=== PATIENT | female | born 1930 | race Caucasian/White ===

== ENCOUNTER 2017-04-21 16:45 | Inpatient (IN) ==
[2017-04-21] MEDS ORDERED: Ondansetron 4 MG/2 ML VIAL IVP PRN (22:37)
[2017-04-21] MEDS ORDERED: *HR* OxyCODONE Immed Rel 5 MG TABLET PO PRN (22:37)
[2017-04-21] MEDS ORDERED: Naloxone 0.4 MG/ML INJ IVP PRN (22:37)
[2017-04-21] MEDS ORDERED: *HR* Morphine 2 MG/ML SYRINGE IVP PRN (22:37)
--- NOTE | 2017-04-21 22:54 | Internal Med History&Physical ---
Date of Encounter: 04/21/17 Time of Encounter: 22:00 Assessment and Plan (1) Hip fracture Current visit: Yes Status: Acute 1. Consult Dr. Bajwa for surgical management and repair. 2. PT/OT consults after surgery. 3. Patient will likely need inpatient rehab after surgery, but I defer to Dr. Bajwa. Further imaging per Dr. Bajwa. Reportedly, he viewed images of xray while at [facility] clinic today. 4. Will order pre-op CXR, EKG, and routine labs. 5. No clinical history to suggest angina. Her history of dyspnea appears to be asthma in nature and responds to albuterol MDI. I recommend pulmonary toilet post-op and incentive spirometry. Qualifiers: Encounter type: initial encounter Fracture type: closed Laterality: right Qualified Code(s): S72.001A - Fracture of unspecified part of neck of right femur, initial encounter for closed fracture (2) Hypertension Current visit: Yes Status: Chronic 1. Continue Home medications as appropriate. 2. Monitor BP and adjust as necessary. Qualifiers: Hypertension type: essential hypertension Qualified Code(s): I10 - Essential (primary) hypertension (3) Asthma Current visit: Yes Status: Chronic 1. Continue albuterol MDI PRN. 2. Incentive spirometry post-op for pneumonia prophylaxis. Qualifiers: Asthma severity: mild Asthma persistence: intermittent Asthma complication type: uncomplicated Qualified Code(s): J45.20 - Mild intermittent asthma, uncomplicated (4) DVT prophylaxis Current visit: Yes Status: Acute 1. Heparin SQ. Internal Medicine - H&P: HPI Chief complaint: hip fracture Admitted From: Hospital to Hospital Transfer Plans for Post Hospital Care: Transfer Inp Rehab Fac History of present illness: Ms. Harrison is a 87 year old female who presents to the hospital in transfer from [facility] ER. She presented there earlier today after sustaining a mechanical fall and injuring her right hip. She reportedly sustained a hip fracture according to the patient, family, and very limited ER records from [place]. I do not see an x-ray report and/or imaging. However, this was reported to me from patient and family. Additionally, Dr. Bajwa reviewed the x-ray in clinic today at [facility]. Patient was transferred here for surgical repair. Patient currently is pain-free. However , she does have significant pain with moving her hip and leg. She denies any syncope or near syncope. She states that this happened when she tripped over a curb on the sidewalk while walking to the mall. She denies any cardiac history. She denies any history of angina or exertional dyspnea. She does have a history of asthma and allergies. Her shortness of breath is related to her asthma and is easily relieved by an inhaler. She is an active individual and actively tends to her garden every day and works outside along her house. She is not limited in activity whatsoever until now with her hip fracture. Other than the very limited ER H&P from [place], I do not see any labs, imaging , or other reports. Past Med Surg Social Fam HX - Past Medical History Attestation: Yes The following information was validated with the patient. Source: patient, obtained from family Medical history: asthma, GERD, hypertension Psychiatric history: no psych history - Past Surgical History Surgical History: hysterectomy, sinus surgery - Social History Smoking Status: Former smoker Smokeless Tobacco Status: No Alcohol use: none Drug use: none Current living situation: Home - Independent Activity Level: Independent ambulation, Very active Recent Out of Country Travel Within the Last 8 Weeks: No - Family History Mother Adopted: [place]: Mae Fernando Age: 80 Family Member Ethnicity: Non- Living Status: Age at : 80 Cause of : MD Hx Family Cardiac Disorders: Yes (MD) Hx Family Respiratory Disorders: No Hx Family Cancer: No Hx Family GI Disorders: No Hx Family Genitourinary Disorders: No Hx Family Endocrine Disorder: Yes (DM) Hx Family Musculoskeletal Disorders: No Hx Family Neuromuscular Disorders: No Hx Family Neurologic Disorders: No Hx Family HEENT Disorders: No Hx Family Autoimmune Disorders: No Hx Family Reproductive Disorders: No Hx Family Psychosocial Disorders: No Hx Family Medical Disorders: No Internal Medicine - H&P: Meds Albuterol Sulfate [Ventolin Hfa] 2 puff IH Q6H PRN 04/21/17 [History] Fexofenadine HCl [Allergy Relief] 180 mg PO DAILY 04/21/17 [History] Hydrochlorothiazide [Microzide] 12.5 mg PO DAILY 04/21/17 [History] Losartan Potassium [Cozaar] 100 mg PO DAILY 04/21/17 [History] Omeprazole [PriLOSEC] 20 mg PO DAILY 04/21/17 [History] Tizanidine HCl 2 mg PO HS PRN 04/21/17 [History] 3 Allergy/AdvReac Type Severity Reaction Status Date / Time Penicillins AdvReac Rash Verified 04/21/17 19:07 - Constitutional Constitutional: no chills, no fever(s), no night sweats - EENT Eyes: no blurry vision, no change in vision Ears: no ear pain, no tinnitus Nose, mouth and throat: post-nasal drip, no nasal congestion, no nasal discharge , no sinus pressure, no sore throat - Cardiovascular Cardiovascular ROS IM: no chest pain, no dyspnea, no dyspnea on exertion, no irregular heart rhythm, no lightheadedness, no palpitations, no syncope - Respiratory Respiratory: wheezing, no cough, no dyspnea, no hemoptysis, no dyspnea on exertion, no chest congestion, no excessive phlegm production, no change in phlegm color - Gastrointestinal Gastrointestinal: no abdominal pain, no diarrhea, no hematemesis, no hematochezia, no melena, no nausea, no vomiting - Genitourinary Genitourinary: no dysuria, no flank pain, no hematuria - Musculoskeletal Musculoskeletal ROS IM: arthralgias (right hip), no back pain - Integumentary Integumentary IM: no rash, no jaundice - Neurological Neurological ROS: no disequilibrium, no dizziness, no focal weakness, no frequent falls, no headache(s) - Psychiatric Psychiatric: no anxiety, no depression - Endocrine Endocrine IM: no polydipsia, no polyuria - Hematologic/Lymphatic Hematologic/Lymphatic: no lymphadenopathy - Allergic/Immunologic Allergic/Immunologic: wheezing, no GI upset with certain foods - Constitutional Vitals: Temp Pulse Resp BP Pulse Ox 98.3 F 92 16 158/90 93 04/21/17 19:45 04/21/17 19:45 04/21/17 19:45 04/21/17 19:45 04/21/17 19:45 General appearance: Present: cooperative, A&O X 3, pleasant, no acute distress - Head Head exam: Present: atraumatic, normal inspection - Expanded Head Exam Head exam expanded: Absent: abrasion, contusion - Eye Eye exam: Present: EOMI, normal appearance, PERRL. Absent: scleral icterus Pupils: Present: normal accommodation - ENT ENT exam: Present: normal exam, normal oropharynx - Neck Neck exam general surgery: Present: full ROM, supple. Absent: tenderness, nuchal rigidity - Expanded Neck Exam Neck exam: Absent: carotid bruit - Respiratory Respiratory exam: Present: CTAB. Absent: chest wall tenderness, rales, respiratory distress, rhonchi, wheezes - Cardiovascular Cardiovascular exam: Present: RRR, +S1, +S2. Absent: diastolic murmur, JVD, systolic murmur - GI/Abdominal GI/Abdominal exam: Present: normal bowel sounds, soft. Absent: hepatomegaly, mass, splenomegaly, tenderness - Extremities Exam Extremities exam: Present: normal capillary refill, tenderness (right hip), warm , radial pulses palpable and symmetrical. Absent: calf tenderness, pedal edema - Back Exam Back exam: Absent: CVA tenderness (L), CVA tenderness (R) - Neurological Exam Neurological exam: Present: alert, CN II-XII intact, oriented X3, no focal deficits - Psychiatric Psychiatric exam: Present: normal affect, normal mood - Skin Skin exam: Present: dry, warm. Absent: rash
[2017-04-21] MEDS: *HR* Heparin 5,000 UNIT/ML VIAL SQ SCH (23:05)
[2017-04-22 04:38] LABS: Basophils % 0.3 %; Eosinophils # 0.2 K/mcL (0.0-0.6); Eosinophils % 2.6 %; Hematocrit 38.8 % (35.3-44.9); Hemoglobin 13.1 g/dL (11.5-15.4); Immature Granulocytes % 0.2 % (0-4); Lymphocytes # 1.1 K/mcL (0.6-4.6); Lymphocytes % 12.9 %; Mean Corpuscular HGB Conc 33.8 g/dL (31.6-35.5); Mean Corpuscular Hemoglobin 27.9 pg (28.0-33.3); Mean Corpuscular Volume 82.7 fL (83.0-100.0); Mean Platelet Volume 10.1 fL (9.4-12.4); Monocytes # 0.6 K/mcL (0.0-1.3); Monocytes % 6.2 %; Neutrophils # 6.9 K/mcL (1.6-8.9); Platelet Count 144 K/mcL (140-400); Red Blood Count 4.69 M/mcL (3.82-4.97); Red Cell Distribution Width 13.9 % (11.5-14.5); Segmented Neutrophils % 77.8 %
[2017-04-22 04:42] LABS: INR 1.1; Prothrombin Time 12.4 Seconds (9.4-12.1)
[2017-04-22 04:44] LABS: Activated Partial Thrombo Time 30.2 Seconds (26.0-36.0)
[2017-04-22 05:01] LABS: Alanine Aminotransferase 20 Units/L (0-55); Albumin 3.3 g/dL (3.5-5.0); Alkaline Phosphatase 67 Units/L (38-126); Aspartate Amino Transferase 19 Units/L (5-34); BUN/Creatinine Ratio 25 (6-26); Bilirubin,Total 1.1 mg/dL (0.2-1.2); Blood Urea Nitrogen 19 mg/dL (7-20); Calcium 9.1 mg/dL (8.6-10.8); Carbon Dioxide 24 mEq/L (19-29); Chloride 107 mEq/L (98-109); Globulin 3.2 g/dL (2.4-3.5); Glucose 116 mg/dL (70-99); Magnesium 1.7 mg/dL (1.6-2.6); Osmolality,Calculated 293 (280-300); Potassium 3.8 mEq/L (3.5-4.5); Sodium 140 mEq/L (136-145); Total Protein 6.5 g/dL (6.0-8.3); eGFR For African Americans > 60 (> 60); eGFR For Non-African Americans > 60 (> 60)
[2017-04-22] MEDS: *HR* Heparin 5,000 UNIT/ML VIAL SQ SCH (05:25)
[2017-04-22] MEDS: Acetaminophen 325 MG TABLET PO PRN ×2 (06:21→12:23)
--- NOTE | 2017-04-22 08:04 | Electrocardiograph Report ---
[address] [place] [address] Test Date: 2017-04-21 Pat Name: Analisa Harrison Department: 114 Room: [facility] Gender: F Senior Managing Director: EVERT : 1930 Requested By: Wily Rivas Order Number: [id number] Reading MD: Sharon Slaughter Measurements Intervals [place] Rate: 96 P: 71 NV: 167 QRS: 67 QRSD: 88 T: 69 QT: 342 QTc: 395 Interpretive Statements SINUS RHYTHM WITH SUPRAVENTRICULAR PREMATURE COMPLEX Electronically Signed On 04-22-2017 8:03:18 EDT by Sharon Slaughter
--- NOTE | 2017-04-22 08:40 | Orthopedic Consult Note ---
Date of Encounter: 04/22/17 Time of Encounter: 08:39 History of Present Illness HPI: Ms. Harrison is a 87 year old female Status post fall yesterday with nondisplaced fracture right hip. Patient seen and [facility] ER. Patient transferred over for definitive treatment. Physical exam Alert and oriented 3 Normocephalic/atraumatic. Right lower extremity Neurovascularly intact Decreased range of motion secondary to pain X-rays reviewed nondisplaced fracture right femoral neck Recommendation for right hip pinning. We reviewed the risks and benefits as well as recovery. All questions were answered. The patient agreed to this treatment plan and appeared to understand the plan is reviewed. Past Med Surg Social Fam HX - Past Medical History Medical history: asthma, GERD, hypertension Psychiatric history: no psych history - Past Surgical History Surgical History: hysterectomy, sinus surgery - Social History Smoking Status: Former smoker Smokeless Tobacco Status: No Alcohol use: none Drug use: none - Family History Mother Adopted: [place]: Mae Fernando Age: 80 Family Member Ethnicity: Non- Living Status: Age at : 80 Cause of : DE Hx Family Cardiac Disorders: Yes (DE) Hx Family Respiratory Disorders: No Hx Family Cancer: No Hx Family GI Disorders: No Hx Family Genitourinary Disorders: No Hx Family Endocrine Disorder: Yes (DM) Hx Family Musculoskeletal Disorders: No Hx Family Neuromuscular Disorders: No Hx Family Neurologic Disorders: No Hx Family HEENT Disorders: No Hx Family Autoimmune Disorders: No Hx Family Reproductive Disorders: No Hx Family Psychosocial Disorders: No Hx Family Medical Disorders: No Medications and Allergies Albuterol Sulfate [Ventolin Hfa] 2 puff IH Q6H PRN 04/21/17 [History] Fexofenadine HCl [Allergy Relief] 180 mg PO DAILY 04/21/17 [History] Hydrochlorothiazide [Microzide] 12.5 mg PO DAILY 04/21/17 [History] Losartan Potassium [Cozaar] 100 mg PO DAILY 04/21/17 [History] Omeprazole [PriLOSEC] 20 mg PO DAILY 04/21/17 [History] Tizanidine HCl 2 mg PO HS PRN 04/21/17 [History] 3 Allergy/AdvReac Type Severity Reaction Status Date / Time Penicillins AdvReac Rash Verified 04/21/17 19:07 All Systems Reviewed: A 10-system review of systems was performed and is negative for pertinent findings except as documented above in the HPI. Physical Exam - Constitutional Vitals: Temp Pulse Resp BP Pulse Ox 98.4 F 96 28 133/80 91 04/22/17 07:40 04/22/17 07:40 04/22/17 07:40 04/22/17 07:40 04/22/17 07:40 Results - Labs Result Diagrams: 04/22/17 03:37 04/22/17 03:37 Labs: Abnormal lab results MCV 82.7 fL (83.0-100.0) L 04/22/17 03:37 MCH 27.9 pg (28.0-33.3) L 04/22/17 03:37 PT 12.4 Seconds (9.4-12.1) H 04/22/17 03:37 Glucose 116 mg/dL (70-99) H 04/22/17 03:37 POC Glucose 110 (58-89) H 04/22/17 06:37 Albumin 3.3 g/dL (3.5-5.0) L 04/22/17 03:37 Albumin/Globulin Ratio 1.0 (1.1-2.2) L 04/22/17 03:37 H & H 04/22/17 Range/Units 03:37 Hgb 13.1 (11.5-15.4) g/dL Hct 38.8 (35.3-44.9) % All other labs normal. Consult Discharge Plan - Plan Referrals: Diallo Miller, FINAL INSPECTOR [Primary Care Provider] -
[2017-04-22] MEDS ORDERED: Loratadine 10 MG TABLET PO SCH (09:00)
--- NOTE | 2017-04-22 14:34 | Anesthesia Evaluation PreOp ---
Date of Encounter: 04/22/17 Time of Encounter: 14:22 - Past History Planned Operation: right hip pinning Cardiac History: Denies any Significant Hx Pulmonary History: Former smoker, Asthma FOUNDRY WORKER GENERAL History: Denies Any Significant HX Other Medical History: GERD Alcohol Use: none Drug use: none Medications and Allergies Albuterol Sulfate [Ventolin Hfa] 2 puff IH Q6H PRN 04/21/17 [History] Fexofenadine HCl [Allergy Relief] 180 mg PO DAILY 04/21/17 [History] Hydrochlorothiazide [Microzide] 12.5 mg PO DAILY 04/21/17 [History] Losartan Potassium [Cozaar] 100 mg PO DAILY 04/21/17 [History] Omeprazole [PriLOSEC] 20 mg PO DAILY 04/21/17 [History] Tizanidine HCl 2 mg PO HS PRN 04/21/17 [History] 3 Allergy/AdvReac Type Severity Reaction Status Date / Time Penicillins AdvReac Rash Verified 04/21/17 19:07 Anesthesia Results - Labs 04/22/17 03:37 04/22/17 03:37 - Imaging EKG: report reviewed (SINUS RHYTHM WITH SUPRAVENTRICULAR PREMATURE COMPLEX) Anesthesia Exam Selected Entries 04/22/17 10:33 Temperature 98.5 F Pulse Rate 103 Respiratory Rate 28 Blood Pressure 148/103 O2 Sat by Pulse Oximetry 91 Weight: 58kg NPO (# of Hours): >>8 - HEENT Pupil (Motor): EOMI Mallampati: II Teeth: Normal Oral Opening: Greater than 3 - FOUNDRY WORKER GENERAL LOC: Oriented FOUNDRY WORKER GENERAL Motor: Normal RUE, Normal LUE, Normal RLE, Normal LLE, Normal Face FOUNDRY WORKER GENERAL Sensory: Normal: RUE, LUE, RLE, LLE, Face - Cardiac Rhythm: Regular Murmur: None - Pulmonary Breath Sounds: bilateral Clear Respiratory Effort: Symmetrical Anesthesia Assess/Plan ASA Score: 3 Modified Fraser Scale for Level of Consciousness: Cooperative, oriented, and tranquil Anesthetic Plan: General Monitoring Plan: Standard Monitors Recovery Plan: PACU (discussed risks of GA, agrees to proceed)
[2017-04-22] MEDS ORDERED: *HR* FentaNYL (PF) 100 MCG/2 ML VIAL ONE (15:04)
[2017-04-22] MEDS ORDERED: *HR* Propofol 200 MG/20 ML VIAL IVP ONE (15:31)
--- NOTE | 2017-04-22 15:31 | Orthopedic Operative Note ---
Date of procedure: 04/22/17 Pre-op diagnosis: Nondisplaced right femoral neck fracture Post-op diagnosis: same Procedure: Procedure: Right hip open pinning Estimated blood loss: 5 cc Hardware: 2 Synthes 7.3 cannulated metal screws Operative procedure: The patient was brought to the operating room and placed on the operating room table. After general anesthesia was administered the well leg was place in the well leg sanchez and the operative leg was placed in the fracture leg sanchez. All pressure points were padded appropriately. The operative extremity was prepped and draped in the sterile surgical fashion patient received IV antibiotic prior to skin incision. Using fluoroscopic assistance a guidepin was placed through a small stab incision on the lateral aspect of the femur. Placed through the lateral femur across the fracture site into the femoral head addition of the guidepin was found to be acceptable in AP and lateral planes. A second guidepin was placed in an appropriate position and confirmed with fluoroscopy. Two 7.3 cannulated screws were placed over the guidepins, and their position was confirmed with fluoroscopy as well. Hardware as well as fracture site was well reduced and well positioned. Wound was irrigated and closed with a 2-0 Monocryl suture The patient was placed in a sterile dressing The patient was extubated and transferred to the recovery room in stable condition. Anesthesia: GETA Surgeon: Brian Bajwa Condition: stable Disposition: PACU
--- NOTE | 2017-04-22 16:10 | Anesthesia Evaluation Post Op ---
Date of Encounter: 04/22/17 Time of Encounter: 16:09 - Vital Signs Vital Signs: vss - Lungs Lungs: Clear Ascult./Percussion - Airway Airway: Non-obstructed - Cardiovascular Baseline Rhythm - Mental Status Mental Status: Alert & Oriented, Answers Appropriately - Pain Pain Scale used: Jenaro (Faces) - Nausea Vomiting Nausea Vomiting: Not Present - Hydration Hydration: Ice chips - Discharge PostOp Status: Transfer Patient to floor
[2017-04-22] MEDS ORDERED: Clindamycin 900 MG/50 ML 900 MG/50 ML IV.SOLN IVPB SCH (16:25)
[2017-04-22] MEDS ORDERED: *HR* Morphine 2 MG/ML SYRINGE IVP PRN (16:25)
[2017-04-22] MEDS ORDERED: Naloxone 0.4 MG/ML INJ IVP PRN ×2 (16:25)
[2017-04-22] MEDS ORDERED: Ondansetron 4 MG/2 ML VIAL IVP PRN (16:25)
[2017-04-22] MEDS ORDERED: Acetaminophen 325 MG TABLET PO PRN (16:25)
[2017-04-22] MEDS ORDERED: *HR* OxyCODONE Immed Rel 5 MG TABLET PO PRN (16:25)
[2017-04-22] MEDS ORDERED: *HR* Heparin 5,000 UNIT/ML VIAL SQ SCH (18:00)
--- NOTE | 2017-04-22 18:00 | Internal Med Progress Note ---
Date of Encounter: 04/22/17 - Constitutional Vitals: Temp Pulse Resp BP Pulse Ox 98.4 F 91 18 144/75 95 04/22/17 17:25 04/22/17 17:25 04/22/17 17:25 04/22/17 17:25 04/22/17 17:25 General appearance: Present: cooperative, A&O X 3, pleasant, no acute distress Internal Medicine: Result - Labs CBC & Chem 7: 04/22/17 03:37 04/22/17 03:37 Labs: Short CBC 04/22/17 Range/Units 03:37 WBC 8.8 (4.3-11.1) K/mcL Hgb 13.1 (11.5-15.4) g/dL Hct 38.8 (35.3-44.9) % Plt Count 144 (140-400) K/mcL Neutrophils # 6.9 (1.6-8.9) K/mcL BMP 04/22/17 03:37 Sodium 140 Potassium 3.8 Chloride 107 Carbon Dioxide 24 BUN 19 Creatinine 0.76 Glucose 116 H Calcium 9.1 Liver Function 04/22/17 Range/Units 03:37 Total Bilirubin 1.1 (0.2-1.2) mg/dL AST 19 (5-34) Units/L ALT 20 (0-55) Units/L Alkaline Phosphatase 67 (38-126) Units/L Albumin 3.3 L (3.5-5.0) g/dL - ABG Interpretation ABG results: PT/INR, D-dimer PT 12.4 Seconds (9.4-12.1) H 04/22/17 03:37 - Impressions Impressions Chest X-Ray 04/21/17 22:42 IMPRESSION: Findings of COPD. No acute focal process. D/ / 04/21/2017 23:10:46 Hany Bell MD / [email or web address] Interpreting Provider: Hany Bell MD Fluoroscopy 04/22/17 15:17 IMPRESSION: Intraprocedural fluoroscopic spot images as above. See separate procedure report for more information. D/ / Scott Wong MD / Scott Wong MD Interpreting Provider: Scott Wong MD - VTE Documentation of Mechanical Device: Intermittent pneumatic compression device Consult Discharge Plan - Plan Referrals: Flaquita Norman, PAC [Physician Hvac Mechanic] - 04/30/17 11:45 am (& also Friday, May 12, 2017 at 3:30 PM) Brian Bajwa MD [Partnered Physician] - 06/02/17 9:05 am Vicki Lerma MD [Partnered Physician] - 07/13/17 10:10 am Diallo Miller CNP [Primary Care Provider] - 05/01/17 9:30 am (& also at Saturday, may 20, 2017 at 3:30 PM)
[2017-04-22 18:47] VITALS: BP 153/74
--- NOTE | 2017-04-22 19:52 | Discharge Summary ---
Date of Encounter: 04/22/17 Time of Encounter: 19:50 - Discharge Diagnosis (1) Hip fracture Priority: Primary Status: Acute Comments: S/P OR/ IF Qualifiers: Encounter type: initial encounter Fracture type: closed Laterality: right Qualified Code(s): S72.001A - Fracture of unspecified part of neck of right femur, initial encounter for closed fracture (2) Hypertension Priority: Secondary Status: Chronic Comments: Currently controlled Qualifiers: Hypertension type: essential hypertension Qualified Code(s): I10 - Essential (primary) hypertension - Discharge Medications Prescriptions: Acetaminophen [Tylenol] 650 mg PO Q6HR PRN #90 tablet PRN Reason: Mild Pain (1-3) Calcium Carb/Vitamin D3/Vit K1 [Calcium + D Soft Chewable Tab] 1 each PO BID # 180 tab.chew Ergocalciferol (VITAMIN D2) [Drisdol (50,000 Unit)] 50,000 unit PO QWEEK #12 capsule Tizanidine HCl 2 mg PO HS PRN #15 tablet PRN Reason: Muscle Spasm Home Medications: Albuterol Sulfate [Ventolin Hfa] 2 puff IH Q6H PRN 04/21/17 [History] Fexofenadine HCl [Allergy Relief] 180 mg PO DAILY 04/21/17 [History] Hydrochlorothiazide [Microzide] 12.5 mg PO DAILY 04/21/17 [History] Losartan Potassium [Cozaar] 100 mg PO DAILY 04/21/17 [History] Omeprazole [PriLOSEC] 20 mg PO DAILY 04/21/17 [History] Acetaminophen [Tylenol] 650 mg PO Q6HR PRN #90 tablet 04/22/17 [Rx] Calcium Carb/Vitamin D3/Vit K1 [Calcium + D Soft Chewable Tab] 1 each PO BID # 180 tab.chew 04/22/17 [Rx] Docusate [Colace] 100 mg PO BID PRN capsule 04/22/17 [Rx] Ergocalciferol (VITAMIN D2) [Drisdol (50,000 Unit)] 50,000 unit PO QWEEK #12 capsule 04/22/17 [Rx] OxyCODONE Immed Rel [Roxicodone 5 MG] 5 mg PO Q6HR PRN #30 tablet 04/22/17 [Rx] Tizanidine HCl 2 mg PO HS PRN #15 tablet 04/22/17 [Rx] Allergies/Adverse Reactions: 3 Allergy/AdvReac Type Severity Reaction Status Date / Time Penicillins AdvReac Rash Verified 04/21/17 19:07 Procedures/tests Complete & Pending: Procedures Performed prior 72 hours Category Date Time Status ECG 12 lead ECG [ECG] Routine Y 04/21/17 22:37 Completed Date of admission: 04/21/17 18:33 Primary care physician: Diallo Miller CNP Consults: 04/22/17 16:25 Consult to Occupational Therapy [CONS] Routine Comment: Evaluate, develop and implement POC Reason for Consult: post hip surgery Consult to Orthopedic Navigator [CONS] [CONS] Routine Consult to Physical Therapy [CONS] Routine Comment: Evaluate, develop and implement POC Reason for Consult: post hip surgery Consult to [employer] Consultant [CONS] Routine Reason for SW Consult: post -op hip fracture RT Post Op Consult [CONS] Routine Discharging clinician: Hakeem Rivera Anticipated date of discharge: 04/22/17 - Patient Status Disposition: Home Health Service Condition: Good Functional capacity at discharge: uses cane/walker Overall status at discharge: patient is not back to baseline - Discharge Instructions Instructions: Chronic Hypertension (DC) Follow Up With: Flaquita Norman PAC [Physician Architect Intern] - 04/30/17 11:45 am (& also Friday, May 12, 2017 at 3:30 PM) Brian Bajwa MD [Partnered Physician] - 06/02/17 9:05 am Vicki Lerma MD [Partnered Physician] - 07/13/17 10:10 am Diallo Miller CNP [Primary Care Provider] - 05/01/17 9:30 am (& also at Saturday, may 20, 2017 at 3:30 PM) - Diet and Activity Activity: ambulate only with your walker, as per physical therapy Diet: low fat, low cholesterol Interval History: Ms. Harrison is a 87 year old female who presents to the hospital in transfer from [facility] ER after sustaining a mechanical fall and injuring her right hip. Patient has a nondisplaced fracture right hip. Patient had surgery today or reduction internal fixation with 2 pin. Patient seen after surgery. Patient was placed on oxygen. Weaned off oxygen gradually. Counseling patient about deep breathing. I had long discussion with patient and family about postoperative course and incentive spirometry. Patient was feeling good patient sat at edge of the bed. With assist. Based on orthopedic recommendation and discussion with patient and family okay for patient to be discharged after antineuritic. I had long discussion with patient and family counseling about the risk and benefit. Patient insisted to go home. Family at bedside. Daughter stated she is going to stay with her at home. Home health care to assist patient and a physical therapy at home tomorrow. Hospital course: Ms. Harrison is a 87 year old female Time spent discussing smoking cessation with patient: more than 10 minutes - Time Spent with Patient Total time spent providing and/or coordinating discharge services: Greater than 30 minutes - Constitutional Vitals: Temp Pulse Resp BP Pulse Ox 98.0 F 94 18 153/74 92 04/22/17 18:46 04/22/17 18:46 04/22/17 18:46 04/22/17 18:46 04/22/17 18:46 General appearance: Present: cooperative, A&O X 3, pleasant, no acute distress - Head Head exam: Present: atraumatic, normocephalic - Respiratory Respiratory exam: Present: CTAB. Absent: accessory muscle use, rales, rhonchi, wheezes - Cardiovascular Cardiovascular exam: Present: RRR, +S1, +S2. Absent: diastolic murmur, gallop, rubs, systolic murmur - GI/Abdominal GI/Abdominal exam: Present: normal bowel sounds, soft, no peritoneal signs. Absent: distended, tenderness - Extremities Exam Extremities exam: Present: warm. Absent: calf tenderness, cyanotic, pedal edema - VTE Documentation of Mechanical Device: Intermittent pneumatic compression device
[2017-04-22] MEDS: Ipratropium/Albuterol Neb 3 ML IH SCH ×2 (20:57→21:03)
[2017-04-23] MEDS ORDERED: Loratadine 10 MG TABLET PO SCH (09:00)
== END 2017-04-22 22:00 | disposition home health service (06) | DRG 482 ==
LOC: 3NENU 18:33
PROVIDERS: ADMIT Family Medicine; ATTEND Internal Medicine